=== PATIENT | male | born 1945 | race Caucasian/White ===

== ENCOUNTER 2018-03-12 09:40 | Inpatient (IN) | payer OTHER ==
[2018-03-12] MEDS ORDERED: METHYLPREDNISOLONE 125 MG INJ ONE (10:30)
[2018-03-12] MEDS ORDERED: LEVALBUTEROL 1.25 MG/3 ML NEB ONE (10:31)
[2018-03-12 10:55] LABS: Protime INR 1.29
[2018-03-12 11:14] LABS: Albumin 3.3 g/dL (3.4-5.0); Bilirubin Direct 0.2 mg/dL (0-0.2); Bilirubin Total 0.6 mg/dL (0.2-1.0); Potassium 4.1 mmol/L (3.5-5.1); Protein, Total 6.6 g/dL (6.4-8.2)
[2018-03-12 11:15] LABS: Magnesium 2.2 mg/dL (1.8-2.4)
[2018-03-12 11:27] LABS: Absolute Lymphocytes (CBC) 0.4 K/uL (0.7-4.9); Absolute Monocytes 1.1 K/uL (0.1-1.3); Absolute Neutrophil 10.7 K/uL (1.8-8.0); Basophils % 0.5 % (0-1.3); Eosinophils % 0.2 % (0-4.4); Hematocrit 37.7 % (39.6-49.0); Lymphocytes % 3.7 % (15.3-44.8); MCH 26.1 pg (27.0-35.0); MCV 80.5 fL (80-100); MPV 9.2 fL (7.6-11.3); Monocytes % 8.7 % (3.3-12.3); RBC Red Blood Cell Count 4.69 M/uL (4.33-5.43)
--- NOTE | 2018-03-12 11:47 | EDPHYS ---
Physician Documentation [facility] Name: Joe Weber Age: 72 yrs Sex: Male : 1945 Arrival Date: 03/12/2018 Time: 09:40 Bed 8 Private MD: [facility] ED Physician El Thornton HPI: 03/12 10:37 This 72 yrs old Male presents to ER via Ambulatory with complaints of COPD kdr Exacerbation. 10:37 The patient has shortness of breath with light activity. Onset: The symptoms/episode kdr began/occurred gradually, 2 day(s) ago. Duration: The symptoms are continuous. The patient's shortness of breath is aggravated by exertion, light activity, talking, walking. Associated signs and symptoms: Pertinent positives: This patient does not have any pertinent positive signs or symptoms associated with shortness of breath. Severity of symptoms: At their worst the symptoms were mild. The patient has experienced similar episodes in the past, multiple times. The patient has not recently seen a physician. Historical: - Allergies: 13:47 Niacin; ph 13:47 Codeine; ph - Home Meds: 13:47 alfuzosin 10 mg oral Tb24 1 tab nightly [Active]; aspirin 81 mg Oral TbEC 1 tab once ph daily [Active]; finasteride 5 mg oral tab 1 tab once daily [Active]; metoprolol tartrate 100 mg Oral tab 1.5 tabs 2 times per day [Active]; rosuvastatin 40 mg oral tab 1 tab once daily [Active]; pantoprazole 40 mg oral TbEC 1 tab 2 times per day [Active]; furosemide 40 mg Oral tab 1 tab once daily [Active]; clopidogrel 75 mg oral tab 1 tab once daily [Active]; 13:55 Spiriva Respimat 2.5 mcg/actuation inhalation mist 2 puffs once daily [Active]; ph Symbicort 160-4.5 mcg/actuation inhalation HFAA 2 puffs 2 times per day [Active]; - PMHx: 13:55 Atrial Fib; Hypertension; Hyperlipidemia; CHF; COPD; ph - PSHx: 13:55 stents x 8; triple bypass; cardiac ablation; ph - Immunization history:: Adult Immunizations unknown. - Social history:: Smoking status: Patient/guardian denies using tobacco, the patient reports quitting approximately 4 years ago. - Ebola Screening: : Patient denies exposure to infectious person Patient denies travel to an Ebola-affected area in the 21 days before illness onset. ROS: 10:37 Constitutional: Negative for fever, chills, and weight loss, Eyes: Negative for injury, kdr pain, redness, and discharge, ENT: Negative for injury, pain, and discharge, Neck: Negative for injury, pain, and swelling, Cardiovascular: Negative for chest pain, palpitations, and edema, Abdomen/GI: Negative for abdominal pain, nausea, vomiting, diarrhea, and constipation, Back: Negative for injury and pain, : Negative for injury, bleeding, discharge, and swelling, MS/Extremity: Negative for injury and deformity, Skin: Negative for injury, rash, and discoloration, Neuro: Negative for headache, weakness, numbness, tingling, and seizure activity. Psych: Negative for depression, anxiety, suicide ideation, homicidal ideation, and hallucinations, Allergy/Immunology: Negative for hives, rash, and allergies, Endocrine: Negative for neck swelling, polydipsia, polyuria, polyphagia, and marked weight changes, Hematologic/Lymphatic: Negative for swollen nodes, abnormal bleeding, and unusual bruising. 10:37 Respiratory: Positive for cough, dyspnea on exertion, shortness of breath, wheezing, Negative for hemoptysis, orthopnea, pleurisy. Exam: 10:37 Constitutional: This is a well developed, well nourished patient who is awake, alert, kdr and in no acute distress. Head/Face: Normocephalic, atraumatic. Eyes: Pupils equal round and reactive to light, extra-ocular motions intact. Lids and lashes normal. Conjunctiva and sclera are non-icteric and not injected. Cornea within normal limits. Periorbital areas with no swelling, redness, or edema. Neck: Trachea midline, no thyromegaly or masses palpated, and no cervical lymphadenopathy. Supple, full range of motion without nuchal rigidity, or vertebral point tenderness. No Meningismus. Chest/axilla: Normal chest wall appearance and motion. Nontender with no deformity. No lesions are appreciated. Cardiovascular: Regular rate and rhythm with a normal S1 and S2. No gallops, murmurs, or rubs. Normal PMI, no JVD. No pulse deficits. Abdomen/GI: Soft, non-tender, with normal bowel sounds. No distension or tympany. No guarding or rebound. No evidence of tenderness throughout. Back: No spinal tenderness. No costovertebral tenderness. Full range of motion. Skin: Warm, dry with normal turgor. Normal color with no rashes, no lesions, and no evidence of cellulitis. MS/ Extremity: Pulses equal, no cyanosis. Neurovascular intact. Full, normal range of motion. Neuro: Awake and alert, GCS 15, oriented to person, place, time, and situation. Cranial nerves II-XII grossly intact. Motor strength 5/5 in all extremities. Sensory grossly intact. Cerebellar exam normal. Normal gait. Psych: Awake, alert, with orientation to person, place and time. Behavior, mood, and affect are within normal limits. 10:37 Respiratory: mild respiratory distress is noted, Respirations: normal, Breath sounds: are clear throughout, rales, that are moderate, that are severe, bronchial sounds. Vital Signs: 09:45 BP 100 / 54; Pulse 86; Resp 16; Temp 99.2(TE); Pulse Ox 97% on R/A; Weight 90.72 kg; ss Height 5 ft. 10 in. (177.80 cm); Pain 0/10; 10:41 BP 116 / 63; Pulse 74; Resp 22; Pulse Ox 100% on Nebulizer Mask; Pain 0/10; ph 12:00 BP 110 / 68; Pulse 81; Resp 18; Pulse Ox 96% on 2 lpm NC; ph 13:10 BP 109 / 64; Pulse 89; Resp 20; Temp 98.9(TE); Pulse Ox 95% on 2 lpm NC; Pain 0/10; ph 14:00 BP 112 / 67; Pulse 84; Resp 18; Pulse Ox 97% on 2 lpm NC; ph 09:45 Body Mass Index 28.70 (90.72 kg, 177.80 cm) ss MDM: 11:46 Patient medically screened. kdr 11:50 Data reviewed: vital signs, nurses notes, lab test result(s), EKG, radiologic studies. kdr Counseling: I had a detailed discussion with the patient and/or guardian regarding: the historical points, exam findings, and any diagnostic results supporting the discharge/admit diagnosis, lab results, radiology results. 03/12 10:09 Order name: Basic Metabolic Panel; Complete Time: 11:26 kdr 03/12 10:09 Order name: CBC with Diff [facility] 03/12 10:09 Order name: LFT's; Complete Time: 11: [facility] 03/12 10:09 Order name: Magnesium; Complete Time: : [facility] 03/12 10:09 Order name: NT PRO-BNP; Complete Time: 11: [facility] 03/12 10:09 Order name: PT-INR; Complete Time: 11: [facility] 03/12 10:09 Order name: Ptt, Activated; Complete Time: : [facility] 03/12 10:09 Order name: Troponin (emerg Dept Use Only); Complete Time: 11: [facility] 03/12 10:09 Order name: XRAY Chest (1 view) [facility] 03/12 11:29 Order name: Manual Differential [facility] 03/12 13:04 Order name: Urine Dipstick--Ancillary (enter results) em 03/12 13:15 Order name: Urine Dipstick-Ancillary [facility] 03/12 13:51 Order name: CBC Smear Scan [facility] 03/12 10:09 Order name: EKG; Complete Time: 10:10 [facility] 03/12 10:09 Order name: Cardiac monitoring; Complete Time: 10:40 [facility] 03/12 10:09 Order name: EKG - Nurse/Tech; Complete Time: 12:02 [facility] 03/12 10:09 Order name: IV Saline Lock; Complete Time: 10:32 [facility] 03/12 10:09 Order name: Labs collected and sent; Complete Time: 10:32 [facility] 03/12 10:09 Order name: O2 Per Protocol; Complete Time: 10:40 [facility] 03/12 10:09 Order name: O2 Sat Monitoring; Complete Time: 10:40 [facility] 03/12 10:09 Order name: Urine Dipstick-Ancillary (obtain specimen); Complete Time: 13:04 [facility] Administered Medications: 10:35 Drug: Xopenex (3) 1.25 mg Route: Inhalation; ph 12:00 Follow up: Response: No adverse reaction ph 10:36 Drug: SOLU-Medrol 125 mg Route: IVP; Site: left antecubital; ph 12:00 Follow up: Response: No adverse reaction ph 12:40 Drug: Lasix 40 mg Route: IVP; Site: left antecubital; ph 14:00 Follow up: Response: No adverse reaction ph Disposition: 03/12/18 11:46 Hospitalization ordered by Manuela Adair for Observation. Preliminary diagnosis are Shortness of breath, COPD exacerbation. - Bed requested for Telemetry/MedSurg (observation). - Status is Observation. ph - Condition is Fair. - Problem is an acute exacerbation. - Symptoms have improved. UTI on Admission? No Signatures: Dispatcher [employer] EDMS El Thornton MD MD [facility] Eren Aguilera em1 Bee Newton RN RN Nelda Light RN RN Maisha Arcos Corrections: (The following items were deleted from the chart) 13:04 11:46 Hospitalization Ordered by Manuela Adair MD for Observation. Preliminary eb diagnosis is Shortness of breath; COPD exacerbation. Bed requested for Telemetry/MedSurg (observation). Status is Observation. Condition is Fair. Problem is an acute exacerbation. Symptoms have improved. UTI on Admission? No. kdr 13:06 13:04 03/12/2018 11:46 Hospitalization Ordered by Manuela Adair MD for Observation. em1 Preliminary diagnosis is Shortness of breath; COPD exacerbation. Bed requested for Telemetry/MedSurg (observation). Status is Observation. Condition is Fair. Problem is an acute exacerbation. Symptoms have improved. UTI on Admission? No. eb 15:00 13:06 03/12/2018 11:46 Hospitalization Ordered by Manuela Adair MD for Observation. ph Preliminary diagnosis is Shortness of breath; COPD exacerbation. Bed requested for Telemetry/MedSurg (observation). Status is Observation. Condition is Fair. Problem is an acute exacerbation. Symptoms have improved. UTI on Admission? No. em1
--- NOTE | 2018-03-12 11:47 | ER ---
Nurse's Notes [facility] Name: Joe Weber Age: 72 yrs Sex: Male : 1945 Arrival Date: 03/12/2018 Time: 09:40 Bed 8 Private MD: Octavia Gruber Diagnosis: Shortness of breath;COPD exacerbation Presentation: 03/12 09:45 Presenting complaint: Patient states: cough, shortness of breath that began "a few days ss ago." Pt reports a history of COPD. Transition of care: patient was not received from another setting of care. Onset of symptoms was September 09, 2017. Risk Assessment: Do you want to hurt yourself or someone else? Patient reports no desire to harm self or others. Initial Sepsis Screen: Does the patient meet any 2 criteria? No. Patient's initial sepsis screen is negative. Does the patient have a suspected source of infection? No. Patient's initial sepsis screen is negative. Care prior to arrival: None. 09:45 Method Of Arrival: Ambulatory ss 09:45 Acuity: MAYCOL 3 ss Historical: - Allergies: 13:47 Niacin; ph 13:47 Codeine; ph - Home Meds: 13:47 alfuzosin 10 mg oral Tb24 1 tab nightly [Active]; aspirin 81 mg Oral TbEC 1 tab once ph daily [Active]; finasteride 5 mg oral tab 1 tab once daily [Active]; metoprolol tartrate 100 mg Oral tab 1.5 tabs 2 times per day [Active]; rosuvastatin 40 mg oral tab 1 tab once daily [Active]; pantoprazole 40 mg oral TbEC 1 tab 2 times per day [Active]; furosemide 40 mg Oral tab 1 tab once daily [Active]; clopidogrel 75 mg oral tab 1 tab once daily [Active]; 13:55 Spiriva Respimat 2.5 mcg/actuation inhalation mist 2 puffs once daily [Active]; ph Symbicort 160-4.5 mcg/actuation inhalation HFAA 2 puffs 2 times per day [Active]; - PMHx: 13:55 Atrial Fib; Hypertension; Hyperlipidemia; CHF; COPD; ph - PSHx: 13:55 stents x 8; triple bypass; cardiac ablation; ph - Immunization history:: Adult Immunizations unknown. - Social history:: Smoking status: Patient/guardian denies using tobacco, the patient reports quitting approximately 4 years ago. - Ebola Screening: : Patient denies exposure to infectious person Patient denies travel to an Ebola-affected area in the 21 days before illness onset. Screenin:34 Abuse screen: Denies threats or abuse. Denies injuries from another. Nutritional ph screening: No deficits noted. Tuberculosis screening: No symptoms or risk factors identified. Fall Risk None identified. Assessment: 10:15 General: Appears in no apparent distress. uncomfortable, well groomed, Behavior is ph calm, cooperative, appropriate for age, Reports chills for 0-12 hours, Denies fever. Pain: Denies pain. Neuro: Level of Consciousness is awake, alert, obeys commands, Oriented to person, place, time, situation. Cardiovascular: Reports shortness of breath, Denies chest pain, nausea, vomiting, Capillary refill < 3 seconds Patient's skin is warm and dry. Respiratory: Reports shortness of breath at rest x 2 days cough that is productive, labored breathing Airway is patent Respiratory effort is even, labored, Respiratory pattern is tachypnea. GI: No signs and/or symptoms were reported involving the gastrointestinal system. Derm: Skin is intact, is healthy with good turgor, Skin is pink, warm \\T\\ dry. Musculoskeletal: Circulation, motion, and sensation intact. Range of motion: intact in all extremities. 11:00 Reassessment: Patient appears in no apparent distress at this time. Patient and/or ph family updated on plan of care and expected duration. Pain level reassessed. Patient is alert, oriented x 3, equal unlabored respirations, skin warm/dry/pink. Pt reports that SOB has improved after neb tx, awaiting lab and radiology results. 12:00 Reassessment: Patient appears in no apparent distress at this time. No changes from ph previously documented assessment. Patient and/or family updated on plan of care and expected duration. Pain level reassessed. Patient is alert, oriented x 3, equal unlabored respirations, skin warm/dry/pink. 13:07 Reassessment: Patient appears in no apparent distress at this time. Patient and/or ph family updated on plan of care and expected duration. Pain level reassessed. Pt sleeping w/ even and unlabored respirations, awakens easily, denies pain, awaiting rom assignment. 14:04 Reassessment: Patient appears in no apparent distress at this time. Patient and/or ph family updated on plan of care and expected duration. Pain level reassessed. Patient is alert, oriented x 3, equal unlabored respirations, skin warm/dry/pink. Attempted to call report, receiving nurse unavailable, will call back in 10 min Patient denies pain at this time. Vital Signs: 09:45 BP 100 / 54; Pulse 86; Resp 16; Temp 99.2(TE); Pulse Ox 97% on R/A; Weight 90.72 kg; ss Height 5 ft. 10 in. (177.80 cm); Pain 0/10; 10:41 BP 116 / 63; Pulse 74; Resp 22; Pulse Ox 100% on Nebulizer Mask; Pain 0/10; ph 12:00 BP 110 / 68; Pulse 81; Resp 18; Pulse Ox 96% on 2 lpm NC; ph 13:10 BP 109 / 64; Pulse 89; Resp 20; Temp 98.9(TE); Pulse Ox 95% on 2 lpm NC; Pain 0/10; ph 14:00 BP 112 / 67; Pulse 84; Resp 18; Pulse Ox 97% on 2 lpm NC; ph 09:45 Body Mass Index 28.70 (90.72 kg, 177.80 cm) ss ED Course: 09:40 Patient arrived in ED. as 09:41 Allyn [facility] is Private Physician. as 09:43 El Thornton MD is Attending Physician. kdr 09:45 Arm band placed on right wrist. ss 09:48 Nelda Light, RN is Primary Nurse. ph 10:07 Triage completed. ss 10:32 Initial lab(s) drawn, by mi, sent to lab. Inserted saline lock: 20 gauge in left em1 antecubital area, using aseptic technique. Blood collected. 10:35 Patient has correct armband on for positive identification. greenhouse specialist on. Pulse ph ox on. NIBP on. Warm blanket given. 10:40 Oxygen administration via nasal cannula \\T\\ 2L/min. ph 11:25 XRAY Chest (1 view) In Process Unspecified. EDMS 11:44 Manuela Adair MD is Hospitalizing Provider. kdr 13:15 No provider procedures requiring assistance completed. Patient admitted, IV remains in ph place. Administered Medications: 10:35 Drug: Xopenex (3) 1.25 mg Route: Inhalation; ph 12:00 Follow up: Response: No adverse reaction ph 10:36 Drug: SOLU-Medrol 125 mg Route: IVP; Site: left antecubital; ph 12:00 Follow up: Response: No adverse reaction ph 12:40 Drug: Lasix 40 mg Route: IVP; Site: left antecubital; ph 14:00 Follow up: Response: No adverse reaction ph Outcome: 11:46 Decision to Hospitalize by Provider. kdr 14:59 Admitted to Tele accompanied by tech, family with patient, via wheelchair, room 214, ph with chart, Report called to WENDI Don 14:59 Condition: good 15:00 Patient left the ED. ph Signatures: Dispatcher [employer] EDMS El Thornton MD MD kdr Martinez, Amelia as Martinez, Eric em1 Bee Newton, WENDI RN Nelda Light RN RN
--- NOTE | 2018-03-12 11:51 | RAD REPORT ---
EXAM DESCRIPTION: RAD - Chest Single View - 03/12/2018 11:25 am CLINICAL HISTORY: Cough, shortness of breath, COPD COMPARISON: None. TECHNIQUE: AP portable chest image was obtained 1016 hours . FINDINGS: No focal mass, consolidation or failure. CABG surgical changes are present with pacemaker in place. Interstitial markings are prominent with the baseline for the patient unknown. This is very likely chronic. A possible minimal superimposed interstitial edema or infiltrate would be possible. Heart and vasculature are normal. No measurable pleural effusion and no pneumothorax. No gross bony a bnormality seen. No acute aortic findings suspected. IMPRESSION: Mildly prominent interstitial markings on a baseline examination. Minimal interstitial e bhanu or infiltrate not excluded.
[2018-03-12] MEDS ORDERED: FUROSEMIDE 40 MG/4 ML VIAL ONE (12:10)
[2018-03-12 13:14] LABS: Urine Blood TRACE (NEG); Urine Glucose NEGATIVE (NEG); Urine Protein 1+ (NEG); Urine pH 6.5 (5.0-7.0)
[2018-03-12 13:51] LABS: Blood Morphology Comment NOT SEEN (NOT SEEN); Platelet Estimate ADEQ; Urine White Blood Cell Casts OK
--- NOTE | 2018-03-12 15:10 | P.HP ---
Certification for Inpatient Patient admitted to: Observation With expected LOS: <2 Midnights Patient will require the following post-hospital care: None Practitioner: I am a practitioner with admitting privileges, knowledge of patient current condition, hospital course, and medical plan of care. Services: Services provided to patient in accordance with Admission requirements found in Title 42 Section 412.3 of the Code of Federal Regulations Patient History Date of Service: 03/12/18 Primary Care Provider: SHAHRZAD from [place] Reason for admission: SOB History of Present Illness: This is a 72-year-old male with significant past medical history of hypertension , CAD, atrial fibrillation, COPD, CHF who presented to the ED after having some shortness of breath for past couple of days. Patient stated that he is originally from [place] and is visiting the area at the [facility] noticed that he got short of breath for past couple of days. Patient stated that he arrived here on the yesterday and was getting short of breath trying to go up his [place] condo. Overnight he became progressively worse and this morning he was not able to get down the steps to [place]. Patient stated that he has been drinking a lot a water leak due to being afraid of dehydration. Patient also stated that he was trying to make it back to [place] to his primary care doctor however since he got short short of breath he decided to come to the ER here. Patient stated that he was unable to lay flat last night and had to sit up in the chair to sleep. No other complaints to offer at this time. Patient denied having any fever chills nausea vomiting chest pain at this time. Allergies codeine Allergy (Verified 03/12/18 13:58) Itching/Hives/Rash niacin Allergy (Verified 03/12/18 13:58) Itching Home medications list reviewed: Yes Home Medications: Alfuzosin HCl [Alfuzosin HCl ER] 10 mg PO BEDTIME 03/12/18 Aspirin Chewable [Aspirin Chewable*] 81 mg PO DAILY 03/12/18 Budesonide/Formoterol Fumarate [Symbicort 160-4.5 Mcg Inhaler] 2 puff IH BID Clopidogrel Bisulfate [Plavix] 75 mg PO DAILY 03/12/18 Finasteride [Proscar] 5 mg PO DAILY 03/12/18 Furosemide [Lasix] 40 mg PO DAILY 03/12/18 Metoprolol Tartrate [Lopressor] 150 mg PO BID 03/12/18 Pantoprazole [Protonix Tab] 40 mg PO BID 03/12/18 Rosuvastatin Calcium [Crestor] 40 mg PO BEDTIME 03/12/18 Tiotropium [place] [Spiriva Respimat] 4 gm IH DAILY 03/12/18 - Past Medical/Surgical History Has patient received pneumonia vaccine in the past: No Diabetic: No Review of Systems General: As per HPI Physical Examination - Vital Signs Temperature: 99.2 F Blood Pressure: 110/68 Pulse: 81 Respirations: 18 - Physical Exam General: Alert, Oriented x3, Mild distress HEENT: Atraumatic Neck: Supple, 2+ carotid pulse no bruit, No LAD, Without JVD or thyroid abnormality Respiratory: Normal air movement, Crackles/rales, Expiratory wheezes, Inspiratory wheezes Cardiovascular: Regular rate/rhythm, Normal S1 S2 Gastrointestinal: Normal bowel sounds, Soft and benign, Non-distended, No tenderness Musculoskeletal: No tenderness Integumentary: No rashes Neurological: Normal gait, Normal speech, Normal strength at 5/5 x4 extr, Normal tone, Normal affect Lymphatics: No axilla or inguinal lymphadenopathy - Studies Laboratory Data (last 24 hrs) 03/12/18 10:30: PT 15.3 H, INR 1.29, APTT 37.7 H 03/12/18 10:30: WBC 12.3 H, Hgb 12.3 L, Hct 37.7 L, Plt Count 163 03/12/18 10:30: Sodium 141, Potassium 4.1, BUN 18, Creatinine 1.80 H, Glucose 146 H, Magnesium 2.2, Total Bilirubin 0.6, AST 11 L, ALT 16, Alkaline Phosphatase 100 Assessment and Plan - Problems (Diagnosis) (1) Dyspnea Current Visit: Yes Status: Acute Plan: SOB worse past 2 days with coughing. DDX of COPD vs CHF exacerbation -Elevated BNP and Xray with mild Edema - IV lasix , Restart Home medication. ECHO and cards Consult -PE with Wheezing and labored Breathing - Duonebs, Steroids and oxygen. Procal pending and Pulmonology consult. -Monitor for 24hrs and if improving DC home Qualifiers: Dyspnea type: shortness of breath Qualified Code(s): R06.02 - Shortness of breath; R06.00 - Dyspnea, unspecified; R06.01 - Orthopnea (2) COPD (chronic obstructive pulmonary disease) Current Visit: Yes Status: Chronic Plan: See # 1 Qualifiers: COPD type: COPD with acute exacerbation Qualified Code(s): J44.1 - Chronic obstructive pulmonary disease with (acute) exacerbation (3) CHF (congestive heart failure) Current Visit: Yes Status: Chronic Plan: See # 1 Qualifiers: Heart failure type: unspecified Heart failure chronicity: acute on chronic Qualified Code(s): I50.9 - Heart failure, unspecified (4) CAD (coronary artery disease) Current Visit: Yes Status: Chronic Plan: CAD S.p CABG -Stable for now Qualifiers: Coronary Disease-Associated Artery/Lesion type: [place] artery [place] vs. transplanted heart: [place] heart Associated angina: without angina Qualified Code(s): I25.10 - Atherosclerotic heart disease of [place] coronary artery without angina pectoris (5) Afib Current Visit: Yes Status: Chronic Plan: ,on metoprolol and aspirin and Plavix will restarted tearful Qualifiers: Atrial fibrillation type: chronic Qualified Code(s): I48.2 - Chronic atrial fibrillation (6) HTN (hypertension) Current Visit: Yes Status: Chronic Qualifiers: Hypertension type: essential hypertension Qualified Code(s): I10 - Essential (primary) hypertension (7) GERD (gastroesophageal reflux disease) Current Visit: Yes Status: Chronic Qualifiers: Esophagitis presence: without esophagitis Qualified Code(s): K21.9 - Gastro -esophageal reflux disease without esophagitis Discharge Plan: Home Plan to discharge in: 24 Hours - Advance Directives Does patient have a Living Will: No Does patient have a Durable POA for Healthcare: No - Code Status/Comfort Care Code Status Assessed: Yes Critical Care: No
[2018-03-12] MEDS ORDERED: ONDANSETRON 4 MG/2 ML VIAL IV PRN (15:21)
[2018-03-12] MEDS ORDERED: ACETAMINOPHEN 500 MG TAB PO PRN (15:21)
[2018-03-12] MEDS: PANTOPRAZOLE 40MG TABLET PO SCH (17:22)
[2018-03-12] MEDS: LEVALBUTEROL 1.25 MG/3 ML NEB NEB SCH (19:39)
[2018-03-12] MEDS: IPRATROPIUM BROM 0.5MG/2.5ML NEB SCH (19:39)
--- NOTE | 2018-03-12 19:56 | EKG ---
Test Date: 2018-03-12 Test Time: 11:32:23 Consulting Practice Manager: ALBERT MEASUREMENT RESULTS: Intervals: Rate: 85 NH: 150 QRSD: 80 QT: 340 QTc: 404 [place]: P: 105 NH: 150 QRS: 77 T: 88 INTERPRETIVE STATEMENTS: Normal sinus rhythm Nonspecific ST abnormality Abnormal ECG No previous ECG available for comparison Electronically Signed On 03-12-18 19:56:05 CDT by Bob Cummins
[2018-03-12] MEDS ORDERED: ALBUTEROL 2.5 MG/3 ML NEB SOL NEB SCH (20:00)
[2018-03-12] MEDS: HOME MED 1 EA UNK (Alfuzosin Hcl [Alfuzosin Hcl Er] 10 MG) PO SCH (21:00)
[2018-03-12] MEDS ORDERED: METOPROLOL TARTRATE 150 MG PO SCH (21:00)
[2018-03-12] MEDS ORDERED: METOPROLOL TAR 50 MG TAB PO SCH (21:00)
[2018-03-12] MEDS: METOPROLOL TAR 50 MG TAB PO SCH (22:43)
[2018-03-12] MEDS: ROSUVASTATIN 10 MG TAB PO SCH (22:43)
[2018-03-12] MEDS: predniSONE 20 MG TAB PO SCH (22:44)
[2018-03-13] MEDS: LEVALBUTEROL 1.25 MG/3 ML NEB NEB SCH ×4 (02:00→20:08)
[2018-03-13] MEDS: IPRATROPIUM BROM 0.5MG/2.5ML NEB SCH ×4 (02:09→20:09)
[2018-03-13 04:58] LABS: Absolute Lymphocytes (CBC) 0.4 K/uL (0.7-4.9); Absolute Monocytes 1.1 K/uL (0.1-1.3); Absolute Neutrophil 12.5 K/uL (1.8-8.0); Basophils % 0.2 % (0-1.3); Hematocrit 35.7 % (39.6-49.0); Lymphocytes % 2.7 % (15.3-44.8); MCH 26.1 pg (27.0-35.0); MCV 79.6 fL (80-100); MPV 8.7 fL (7.6-11.3); Monocytes % 7.6 % (3.3-12.3); RBC Red Blood Cell Count 4.48 M/uL (4.33-5.43)
[2018-03-13 05:18] LABS: Albumin 3.1 g/dL (3.4-5.0); Bilirubin Total 0.5 mg/dL (0.2-1.0); Magnesium 2.3 mg/dL (1.8-2.4); Phosphorus 1.7 mg/dL (2.5-4.9); Potassium 3.9 mmol/L (3.5-5.1); Protein, Total 6.6 g/dL (6.4-8.2)
[2018-03-13] MEDS: PANTOPRAZOLE 40MG TABLET PO SCH ×2 (05:40→16:35)
[2018-03-13] MEDS ORDERED: POTASSIUM CL SA 10 MEQ TAB PO ONE (07:00)
[2018-03-13] MEDS: POTASS/SODIUM PHOSPHATE 1 PKT POWD.PACK PO SCH ×3 (07:26→10:11)
--- NOTE | 2018-03-13 08:12 | P.CNS ---
Date of Consult: 03/13/18 Primary Care Provider: SHAHRZAD from [place] Chief Complaint: Shortness of breath History of Present Illness: Patient is 72 years of age with a history of COPD high he lives and [place] and was visiting here developed worsening shortness of breath cough congestion patient has I presume severe COPD is on oxygen compliant with his bronchodilators significant history of coronary artery disease last flare up was about a year ago he does not currently smoke with smoking 4 years ago no change since admission Allergies codeine Allergy (Verified 03/12/18 13:58) Itching/Hives/Rash niacin Allergy (Verified 03/12/18 13:58) Itching Home Medications: Alfuzosin HCl [Alfuzosin HCl ER] 10 mg PO BEDTIME 03/12/18 Aspirin Chewable [Aspirin Chewable*] 81 mg PO DAILY 03/12/18 Budesonide/Formoterol Fumarate [Symbicort 160-4.5 Mcg Inhaler] 2 puff IH BID Clopidogrel Bisulfate [Plavix] 75 mg PO DAILY 03/12/18 Finasteride [Proscar] 5 mg PO DAILY 03/12/18 Furosemide [Lasix] 40 mg PO DAILY 03/12/18 Metoprolol Tartrate [Lopressor] 50 mg PO BID 03/12/18 Pantoprazole [Protonix Tab] 40 mg PO BID 03/12/18 Rosuvastatin Calcium [Crestor] 40 mg PO BEDTIME 03/12/18 Tiotropium [place] [Spiriva Respimat] 4 gm IH DAILY 03/12/18 - Past Medical/Surgical History Diabetic: No -: ATRIAL FIBRILATION -: COPD -: CHF -: HLD -: HTN -: O2 DEPENDENCY -: Renal failure -: PACEMAKER -: TRIPLE BYPASS '92 -: CARDIAC STENTS X8 -: CARDIAC ABLATION - Social History Alcohol use: No CD- Drugs: No Caffeine use: Yes Place of Residence: Home Review of Systems 10-point ROS is otherwise unremarkable General: Weakness Respiratory: Cough, Shortness of Breath Physical Examination Temp Pulse Resp BP Pulse Ox 98.1 F 85 20 103/55 L 94 03/13/18 04:00 03/13/18 04:00 03/13/18 04:00 03/13/18 04:00 03/13/18 04:00 General: Alert, Oriented x3 HEENT: Atraumatic Neck: Supple Respiratory: Expiratory wheezes Cardiovascular: No edema, Regular rate/rhythm Gastrointestinal: Normal bowel sounds, Soft and benign Musculoskeletal: No clubbing, No swelling Laboratory Data (last 24 hrs) 03/12/18 10:30: PT 15.3 H, INR 1.29, APTT 37.7 H 03/12/18 10:30: WBC 12.3 H, Hgb 12.3 L, Hct 37.7 L, Plt Count 163 03/12/18 10:30: Sodium 141, Potassium 4.1, BUN 18, Creatinine 1.80 H, Glucose 146 H, Magnesium 2.2, Total Bilirubin 0.6, AST 11 L, ALT 16, Alkaline Phosphatase 100 - Problems (1) COPD exacerbation Current Visit: Yes Status: Acute Plan: Patient is 72 years of age admitted with COPD exacerbation patient resides in an [facility] was visiting here is compliant with his inhalers has oxygen at home quit smoking 4 years ago patient has renal insufficient and drinks a lot of fluids in addition to taking diuretics white count is mildly elevated chest x- ray shows some interstitial changes in addition to the pacemaker continue with steroids bronchodilators sputum cultures ordered patient complains of a dry mouth I have advised him to restrict his fluid in
[2018-03-13] MEDS ORDERED: FUROSEMIDE 20 MG/ 2ML VIAL IV SCH (09:00)
[2018-03-13] MEDS: METOPROLOL TAR 50 MG TAB PO SCH ×2 (09:00→21:00)
[2018-03-13] MEDS: predniSONE 20 MG TAB PO SCH ×2 (09:40→22:36)
[2018-03-13] MEDS: ASPIRIN 81 MG CHEWABLE TABLET PO SCH (09:40)
[2018-03-13] MEDS: CLOPIDOGREL 75 MG TABLET PO SCH (09:40)
[2018-03-13] MEDS: FINASTERIDE 5 MG TAB PO SCH (09:40)
[2018-03-13] MEDS: levoFLOXacin 500 MG TAB PO SCH (09:40)
--- NOTE | 2018-03-13 11:49 | PN ---
Date of Progress Note: 03/13/2018 Subjective: The patient is seen and examined. Chart reviewed and case discussed with RN. The patient states that he is still having some significant shortness of breath, not improved much, was able to get up and move to the bathroom, but does get short of breath. The patient is on 2 L of oxygen at home. Currently visiting from out of town. No significant cough or sputum production. Review of Systems: Negative except as above. Medications: List reviewed. Physical Examination: Vital Signs: Temperature 96.7, heart rate 79, blood pressure 100/51, respirations 20, O2 98% on 2 L via nasal cannula. General: Awake, alert, oriented x3. Some mild distress. Elderly male, somewhat ill-appearing, obese. CV: S1, S2. No murmurs. Peripheral pulses present. Respiratory: Diminished breath sounds, some wheezing heard. No use of accessory muscles. Gastrointestinal: Abdomen is soft, nontender, nondistended. Positive bowel sounds. No guarding or rigidity. Extremities: No clubbing, cyanosis. The patient does have some lower extremity edema. Neurologic: Nonfocal. Laboratory Data: Sodium 141, potassium 3.9, chloride 103, CO2 31, BUN 23, creatinine 1.9, glucose 159, calcium 8.4, phosphorus 1.7, magnesium 2.3. WBC 14 , H and H 11.7 and 35.7, platelets 162, neutrophils 89%. Sputum culture is pending. Assessment And Plan: A 72-year-old male with: 1. Acute chronic obstructive pulmonary disease exacerbation. Continue with steroids, nebulizer treatments, and supplemental oxygen. 2. Acute on chronic respiratory distress. The patient is on 2 L of oxygen at home, likely worsening due to chronic obstructive pulmonary disease and congestive heart failure. The patient is being diuresed with IV Lasix. Echocardiogram has been ordered. Cardiology consultation. We will attempt to wean back to 2 L. We will ambulate. 3. Acute on chronic congestive heart failure, unknown ejection fraction. We will continue with diuresis and congestive heart failure guidelines. 4. Coronary artery disease status post coronary artery bypass graft, kaw artery and kaw heart without angina, stable. 5. Atrial fibrillation, paroxysmal, on metoprolol, aspirin. Currently in sinus rhythm. 6. Essential hypertension, stable. 7. Gastroesophageal reflux disease without esophagitis. 8. Gastrointestinal and deep venous thrombosis prophylaxis addressed. Code status: full SA/MODL Voice ID: [id number] Report ID: [id number] MTDD
--- NOTE | 2018-03-13 13:49 | CON ---
History Of Present Illness: Mr. Weber came into the hospital because he was dyspneic. He felt tight in the chest. He normally lives in [place]. He sees doctors at the [facility] in [place]. He has go ne through numerous heart procedures including bypass surgery in the early s, at least 8 intracoron chester stents. He has a pacemaker and he has had a Watchman device and an AFib ablation protocol for AF ib. He is in sinus rhythm during this hospitalization. He was not feeling chest pain or anything th at sounds like his usual angina, but he was coughing, coughing up phlegm. Not having fever or chill. Since he got to the hospital, he was found to have mild interstitial edema on x-ray. He has receiv ed intravenous Lasix and it was believed he mostly had COPD exacerbation. He has been receiving edward thing treatments at least 2 types, levofloxacin and steroids. The family says he initially seemed to get better, but today he looks like he did yesterday. He is not getting IV fluids. An echocardiogr am was ordered, but not yet done. I think that might help us decide what to do. I think perhaps we should increase the amount of intravenous diuretics he is getting, try and get his fluid balance a li ttle lower. I put him on a low-sodium diet and continue the breathing treatments and see if we can g et him in good enough shape to be discharged perhaps tomorrow. Thank you very much for kind referral of Mr. Weber. I will follow him with you. LASHAWN Voice ID: [id number] Report ID: [id number]
[2018-03-13] MEDS: ARFORMOTEROL TARTRATE 15 MCG/2 ML VIAL.NEB NEB SCH ×2 (14:05→20:07)
--- NOTE | 2018-03-13 14:44 | ECHO ---
HEIGHT: 5 ft 10 in WEIGHT: 203 lb 0 oz DATE OF STUDY: 03/13/[address]: Manuela Adair MD 2-DIMENSIONAL: YES M.MODE: YES DOPPLER: YES COLOR FLOW: YES TDS: YES PORTABLE: NO DEFINITY: NO BUBBLE STUDY: NO DIAGNOSIS: CONGESTIVE HEART FAILURE CARDIAC HISTORY: CATHERIZATION: YES SURGERY: CABG PROSTHETIC VALVE: NO PACEMAKER: YES MEASUREMENTS (cm) DIASTOLIC (NORMALS) SYSTOLIC (NORMALS) IVSd 1.1 (0.6-1.2) LA Diam 4.6 (1.9-4.0) LVEF 60-69% LVIDd 4.7 (3.5-5.7) LVIDs 3.5 (2.0-3.5) %FS 26% LVPWd 1.0 (0.6-1.2) Ao Diam 2.7 (2.0-3.7) 2 DIMENSIONAL ASSESSMENT: RIGHT ATRIUM: DILATED LEFT ATRIUM: DILATED RIGHT VENTRICLE: NORMAL LEFT VENTRICLE: NORMAL TRICUSPID VALVE: NORMAL MITRAL VALVE: NORMAL PULMONIC VALVE: NORMAL AORTIC VALVE: NORMAL PERICARDIAL EFFUSION: NONE AORTIC ROOT: NORMAL LEFT VENTRICULAR WALL MOTION: NORMAL. DOPPLER/COLOR FLOW: NORMAL. COMMENTS: NORMAL LEFT VENTRICULAR EJECTION FRACTION. DILATED RIGHT AND LEFT ATRIUM. OTHERWISE NORMAL 2D ECHO WITH DOPPLER. TECHNOLOGIST: BERTO LITTLE RD
[2018-03-13] MEDS: FUROSEMIDE 40 MG/4 ML VIAL IV SCH (16:37)
[2018-03-13] MEDS ORDERED: ALBUTEROL 2.5 MG/3 ML NEB SOL NEB PRN (17:00)
[2018-03-13] MEDS ORDERED: LEVALBUTEROL 1.25 MG/3 ML NEB NEB PRN (17:32)
[2018-03-13] MEDS: HOME MED 1 EA UNK (Alfuzosin Hcl [Alfuzosin Hcl Er] 10 MG) PO SCH (21:00)
[2018-03-13] MEDS: ROSUVASTATIN 10 MG TAB PO SCH (22:35)
[2018-03-14] MEDS: IPRATROPIUM BROM 0.5MG/2.5ML NEB SCH ×2 (02:25→08:23)
[2018-03-14] MEDS: LEVALBUTEROL 1.25 MG/3 ML NEB NEB SCH ×2 (02:25→08:23)
[2018-03-14 05:42] LABS: Absolute Lymphocytes (CBC) 0.2 K/uL (0.7-4.9); Absolute Monocytes 0.7 K/uL (0.1-1.3); Absolute Neutrophil 9.7 K/uL (1.8-8.0); Basophils % 0.2 % (0-1.3); Hematocrit 36.7 % (39.6-49.0); Lymphocytes % 2.2 % (15.3-44.8); MCH 26.5 pg (27.0-35.0); MCV 80.6 fL (80-100); MPV 9.2 fL (7.6-11.3); Monocytes % 6.2 % (3.3-12.3); RBC Red Blood Cell Count 4.56 M/uL (4.33-5.43)
[2018-03-14 06:01] LABS: Albumin 3.1 g/dL (3.4-5.0); Bilirubin Total 0.5 mg/dL (0.2-1.0); Magnesium 2.3 mg/dL (1.8-2.4); Phosphorus 2.2 mg/dL (2.5-4.9); Potassium 4.1 mmol/L (3.5-5.1); Protein, Total 6.8 g/dL (6.4-8.2)
[2018-03-14] MEDS: ARFORMOTEROL TARTRATE 15 MCG/2 ML VIAL.NEB NEB SCH (08:23)
--- NOTE | 2018-03-14 08:43 | P.PN ---
Subjective Date of Service: 03/14/18 Primary Care Provider: SHAHRZAD from [place] Chief Complaint: COPD exacerbation Subjective: Improving (Patient is doing much better is cough and congestion has improved) Review of Systems Unremarkable Physical Examination - Vital Signs Temperature: 97.5 F Blood Pressure: 119/66 Pulse: 99 Respirations: 18 Pulse Ox (%): 95 - Physical Exam General: Alert, Oriented x3 HEENT: Atraumatic Neck: Supple Respiratory: Clear to auscultation bilaterally, Diminished Cardiovascular: No edema, Regular rate/rhythm - Studies Microbiology Data (last 24 hrs): 03/13/18 10:08 Sputum Gram Stain - Final Assessment & Plan - Problems (Diagnosis) (1) COPD exacerbation Current Visit: Yes Status: Acute Plan: Patient is 72 years of age admitted with COPD exacerbation he is doing much better echocardiogram is normal reduce dose of Lasix patient can be discharged home on prednisone 10 mg twice a day for 10-14 days levofloxacin for 7 days continue with bronchodilators at home he has been advised to restrict fluid intake Patient will be heading back to [place] he has oxygen and bronchodilators at home
[2018-03-14] MEDS: levoFLOXacin 500 MG TAB PO SCH (09:00)
[2018-03-14] MEDS ORDERED: levoFLOXacin 250 MG TAB PO SCH (10:00)
[2018-03-14] MEDS: FUROSEMIDE 40 MG/4 ML VIAL IV SCH (10:14)
[2018-03-14] MEDS: PANTOPRAZOLE 40MG TABLET PO SCH (10:14)
[2018-03-14] MEDS: predniSONE 20 MG TAB PO SCH (10:14)
[2018-03-14] MEDS: ASPIRIN 81 MG CHEWABLE TABLET PO SCH (10:14)
[2018-03-14] MEDS: CLOPIDOGREL 75 MG TABLET PO SCH (10:15)
[2018-03-14] MEDS: METOPROLOL TAR 50 MG TAB PO SCH (10:15)
[2018-03-14] MEDS: FINASTERIDE 5 MG TAB PO SCH (10:15)
--- NOTE | 2018-03-14 14:55 | DS ---
Date of Discharge: 03/14/2018 Consultants: Dr. Melvin with Pulmonology, Dr. Cummins with Cardiology. Admitting Diagnoses: 1.Shortness of breath. 2.Chronic obstructive pulmonary disease exacerbation. 3.Acute on chronic congestive heart failure. 4.Coronary artery disease, [place] artery and [place] heart without angina. 5.Atrial fibrillation, chronic. 6.Essential hypertension. 7.Gastroesophageal reflux disease without esophagitis. Discharge Diagnoses: 1.Acute chronic obstructive pulmonary disease exacerbation, resolved. 2.Acute on chronic respiratory distress. The patient is on 2 L of oxygen at home. 3.Acute on chronic congestive heart failure with EF of 60% to 69%, diastolic dysfunction. 4.Coronary artery disease status post coronary artery bypass graft, [place] artery and [place] heart w ithout angina, stable. 5.Atrial fibrillation, paroxysmal, on metoprolol and aspirin, currently in sinus rhythm. 6.Essential hypertension. 7.Gastroesophageal reflux disease without esophagitis. Hospital Course: The patient is a 72-year-old male from [place] visiting from out of town, comes in w [facility] shortness of breath. The patient was found to have acute COPD and acute CHF exacerbation. He wa s started on IV steroids and nebulizer treatments. He did have an elevated white count of 12.3 with left shift. His chest x-ray showed some fluid overload and prominent interstitial markings. The pat ient was diuresed. Cardiology, Dr. Jacob and Pulmonology, Dr. Melvin were consulted. Echocardi ogram was done, which showed EF of 60% to 69%. The patient diuresed well. He responded well to the breathing treatments and his condition improved. The patient was then cleared for discharge. He is back on 2 L of oxygen. The patient is able to ambulate without significant dyspnea on exertion. The patient was then discharged home in a stable condition. Activity: No strenuous activity. Followup: Follow up with primary care physician in 2-3 days. Follow up with specialist at the [facility] back in [place]. Diet: Low-sodium fluid restricted diet. Total time spent discharging the patient was 37 minutes. Medications: As per medication reconciliation list. Physical Examination: General: Awake, alert, oriented, elderly male, no acute distress. CV: S1, S2. No murmurs. Regular rate and rhythm. Peripheral pulses present. Respiratory: Moving air well bilaterally. No wheezing. Gastrointestinal: Abdomen is soft, nontender, nondistended. Positive bowel sounds. Extremities: No clubbing, cyanosis, or pitting edema. Neuro: Nonfocal. SA/MODL Voice ID: [id number] Report ID: [id number]
--- NOTE | 2018-03-15 11:06 | PN ---
Date of Progress Note: 03/14/2018 Subjective: The patient was seen as a followup on 03/14/2018. The patient has a history of CABG, PC I, COPD. He was seen for elevated troponin and congestive heart failure. We suggested increased diu resis. His echocardiogram, however, that was done was normal with a normal ejection fraction. His p roblem may be more COPD exacerbation than CHF. Plan: We will continue to follow as needed. Continue present regimen. LONNIE/JOSE Voice ID: [id number] Report ID: [id number]
== END 2018-03-14 13:45 | disposition home or self-care (01) | DRG 190 ==
LOC: ER 09:40 → ERHOLD 11:48 → 2ND 14:45 → OBSVTOIN 03-13 14:52
PROVIDERS: ADMIT Family Medicine; ATTEND Family Medicine
DX: J44.1 Chronic obstructive pulmonary disease with (acute) exacerbation (principal); I50.33 Acute on chronic diastolic (congestive) heart failure; I11.0 Hypertensive heart disease with heart failure; R06.03 Acute respiratory distress; I25.10 Atherosclerotic heart disease of native coronary artery without angina pectoris; I48.0 Paroxysmal atrial fibrillation; E78.5 Hyperlipidemia, unspecified; K21.9 Gastro-esophageal reflux disease without esophagitis; Z99.81 Dependence on supplemental oxygen; Z79.02 Long term (current) use of antithrombotics/antiplatelets; Z79.82 Long term (current) use of aspirin; Z95.1 Presence of aortocoronary bypass graft; Z95.5 Presence of coronary angioplasty implant and graft; Z95.0 Presence of cardiac pacemaker; Z87.891 Personal history of nicotine dependence
CPT/HCPCS: 36415; 71045; 80048; 80053; 80076; 81003; 83735; 83880; 84100; 84145; 84484; 85025; 85610; 85730; 87070; 87077; 87184; 87186; 87205; 93005; 93306; 94640; 94760; 96374; 96375; 99285; J1940; J2930; J7512; J7605